=== PATIENT | male | born 1955 | race Caucasian/White ===

== ENCOUNTER 2020-11-13 18:31 | Emergency (ER) | payer SELFPAY ==
[~2020-11-13] VITALS: Ht 198.1 cm; Wt 90.7 kg
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
[2020-11-13] MEDS ORDERED: Tetracaine 0.5% Opth 4ml Soln LEFT EYE ONE (18:45)
[2020-11-13] MEDS ORDERED: Fluorescein Strips LEFT EYE ONE (18:45)
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
--- NOTE | 2020-11-13 19:17 | Diagnostic Imaging Report ---
EXAM: CT Head Without Intravenous Contrast CLINICAL HISTORY: INJ TECHNIQUE: Axial computed tomography images of the head/brain without intravenous contrast. CTDI is 68.7 mGy and DLP is 1500.7 mGy-cm. One or more of the following dose reduction techniques were used: automated exposure control, adjustment of the mA and/or kV according to patient size, use of iterative reconstruction technique. COMPARISON: No relevant prior studies available. FINDINGS: Brain: No hemorrhage, edema or evidence of mass-effect. No significant white matter disease. Ventricles: Unremarkable. No ventriculomegaly. Bones/joints: Unremarkable. No acute fracture. Soft tissues: Unremarkable. Sinuses: Ethmoid sinus disease. Mastoid air cells: No mastoid effusion. Orbits: Symmetric. IMPRESSION: 1. No acute intracranial traumatic process. 2. No acute calvarial fracture. 3. Ethmoid sinus disease.
--- NOTE | 2020-11-13 19:23 | Diagnostic Imaging Report ---
EXAM: CT Maxillofacial Without Intravenous Contrast CLINICAL HISTORY: INJ TECHNIQUE: Axial computed tomography images of the face without intravenous contrast. CTDI is 15.3 mGy and DLP is 375.1 mGy-cm. One or more of the following dose reduction techniques were used: automated exposure control, adjustment of the mA and/or kV according to patient size, use of iterative reconstruction technique. COMPARISON: No relevant prior studies available. FINDINGS: Bones/joints: Bilateral displaced nasal bone fractures (12: 45, anthony images). No other acute fracture or dislocation. Soft tissues: Pre-nasal soft tissue edema. Orbits: Unremarkable and symmetric. Sinuses: Ethmoid sinus air-fluid levels. Bilateral maxillary and frontal sinus disease. IMPRESSION: Bilateral displaced nasal bone fractures.
[2020-11-13] MEDS ORDERED: ARTIFICIAL TEAR15 ML BOTH EYES (19:37)
--- NOTE | 2020-11-13 19:40 | NUR ---
ER DISCHARGE NOTE: Patient is cleared to be discharged per ERMD, pt is aox4, on room air, with stable vital signs. pt was given dc and prescription instructions, pt was able to verbalize understanding, pt id band removed. pt is able to ambulate with steady gait. pt took all belongings.
[2020-11-13 19:43] VITALS: BP 126/64
== END 2020-11-13 19:40 | disposition home or self-care (01) ==
LOC: EDBD 18:31 → EMR 18:40
DX: T59.3X3A Toxic effect of lacrimogenic gas, assault, initial encounter (principal); S00.83XA Contusion of other part of head, initial encounter; S02.2XXA Fracture of nasal bones, initial encounter for closed fracture; Y04.2XXA Assault by strike against or bumped into by another person, initial encounter; Y92.811 Bus as the place of occurrence of the external cause; I25.10 Atherosclerotic heart disease of native coronary artery without angina pectoris; Z95.0 Presence of cardiac pacemaker; J32.2 Chronic ethmoidal sinusitis
CPT/HCPCS: 70450; 70486; 99284